=== PATIENT | female | born 2000 | race Two or more races ===

== ENCOUNTER → 2024-11-10 | Outpatient (CLI) | payer MEDICAID, SELFPAY ==
--- NOTE | 2024-11-10 10:17 | XR_ITS ---
Examination: Bilateral hands, 6 views. Technique: AP, Oblique, Lateral each hand total 6 views Date and time of exam: November 10, 2024 1019 hours INDICATIONS: Bilateral hand pain 5 months Findings: Mild juxta-articular bone demineralization No fracture or dislocation involving either hand No erosive or other significant arthritic change involving either hand IMPRESSION: Mild juxta-articular bone demineralization No erosive or other significant arthritic change
--- NOTE | 2024-11-10 10:17 | XR_ITS ---
Examination: Bilateral wrists 6 views TECHNIQUE: AP oblique lateral each wrist total 6 views Date and time: November 10, 2024 10:29 AM INDICATIONS: Bilateral wrist pain beginning 5 months ago. FINDINGS: Mild osteopenia. No fracture involving either wrist. No avascular necrosis On the lateral view right wrist the distal ulna is mildly dorsally positioned No erosive or other significant arthritic change IMPRESSION: On the lateral view right wrist the distal ulna is mildly dorsally positioned No erosive or other significant arthritic change involving either wrist
== END | disposition home or self-care (01) ==
DX: M25.842 Other specified joint disorders, left hand (principal); M25.841 Other specified joint disorders, right hand; M25.832 Other specified joint disorders, left wrist; M25.831 Other specified joint disorders, right wrist
CPT/HCPCS: 73110; 73130

== ENCOUNTER → 2024-12-20 | Outpatient (CLI) | payer MEDICAID, SELFPAY ==
--- NOTE | 2024-12-20 15:00 | XR_ITS ---
Examination: Breast ultrasound, unilateral, right Date and time of exam: December 20, 2024 1518 hours Comparison October 10, 2018 INDICATIONS: 11:00 nodule right breast 27 x 21 mm on breast sonogram October 10, 2018 Technique: Real-time land scale ultrasonographic imaging performed right breast including all 4 quadrants as well as nipple retroareolar and axillary region. Findings: Sonographic images right breast 12:00 nodule 19 x 16 mm lobular margins 11:00 nodule lobular margins 27 x 20 mm IMPRESSION: BI-RADS Category 3: Probably benign findings Recommend 3 month right breast sonogram follow-up to document stability of nodules described above
== END | disposition home or self-care (01) ==
LOC: CDIM 15:04
DX: D24.1 Benign neoplasm of right breast (principal); N63.15 Unspecified lump in the right breast, overlapping quadrants; N63.11 Unspecified lump in the right breast, upper outer quadrant
CPT/HCPCS: 76641